=== PATIENT | male | born 1990 | race Caucasian/White ===

== ENCOUNTER 2018-09-17 07:47 | Emergency (ER) | payer SELFPAY ==
[2018-09-17] MEDS ORDERED: NA CHLORIDE 0.9% 1,000 ML ONE (08:57)
[2018-09-17 09:05] LABS: Absolute Lymphocytes (CBC) 1.9 K/uL (0.7-4.9); Basophils % 0.8 % (0-1.3); Eosinophils % 2.3 % (0-4.4); Hematocrit 44.4 % (39.6-49.0); Lymphocytes % 35.1 % (15.3-44.8); MPV 8.2 fL (7.6-11.3); Monocytes % 8.3 % (3.3-12.3); RBC Red Blood Cell Count 5.23 M/uL (4.33-5.43)
[2018-09-17 09:09] LABS: Magnesium 2.4 mg/dL (1.8-2.4); Potassium 4.2 mmol/L (3.5-5.1)
--- NOTE | 2018-09-17 09:28 | EDPHYS ---
Physician Documentation [facility] Name: Norman Linares Age: 28 yrs Sex: Male : 1990 Arrival Date: 09/17/2018 Time: 07:50 Bed 18 Private MD: None, None ED Physician Maco Chen HPI: 09/17 08:45 This 28 yrs old Male presents to ER via Ambulatory with complaints of jr8 Dizziness. 08:45 The patient presents with dizziness, lightheadedness. Onset: The symptoms/episode jr8 began/occurred acutely, this morning, today. Context: occurred at home, occurred while the patient was standing, walking, just prior to the episode the patient experienced no apparent symptoms. Modifying factors: The symptoms are alleviated by lying down, the symptoms are aggravated by standing up, changing position. Associated signs and symptoms: The patient has no apparent associated signs or symptoms. Severity of symptoms: At their worst the symptoms were mild in the emergency department the symptoms are unchanged. Patient's baseline: Neuro: alert and fully oriented, Motor: no deficits, Ambulation: walks without assistance, Speech: normal. The patient has not experienced similar symptoms in the past. The patient has not recently seen a physician. 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 Stated that this morning he felt lightheaded and dizzy. Denies any other symptoms . Historical: - Allergies: 07:50 No Known Allergies; aa5 - Home Meds: 07:50 None [Active]; aa5 - PMHx: 07:50 None; aa5 - PSHx: 07:50 None; aa5 - Immunization history:: Flu vaccine is not up to date. - Social history:: Smoking status: Patient/guardian denies using tobacco. - Ebola Screening: : No symptoms or risks identified at this time. ROS: 08:45 Constitutional: Negative for fever, chills, and weight loss. jr8 08:45 Cardiovascular: Negative for chest pain, palpitations, and edema, Respiratory: Negative for shortness of breath, cough, wheezing, and pleuritic chest pain. 08:45 Neuro: Positive for dizziness, Negative for altered mental status, gait disturbance, headache, hearing loss, loss of consciousness, numbness, seizure activity, speech changes, syncope, near syncope, tingling, tinnitus, tremor, visual changes, weakness. 08:45 All other systems are negative. Exam: 08:45 Eyes: Pupils equal round and reactive to light, extra-ocular motions intact. Lids and jr8 lashes normal. Conjunctiva and sclera are non-icteric and not injected. Cornea within normal limits. Periorbital areas with no swelling, redness, or edema. ENT: Nares patent. No nasal discharge, no septal abnormalities noted. Tympanic membranes are normal and external auditory canals are clear. Oropharynx with no redness, swelling, or masses, exudates, or evidence of obstruction, uvula midline. Mucous membranes moist. Neck: Trachea midline, no thyromegaly or masses palpated, and no cervical lymphadenopathy. Supple, full range of motion without nuchal rigidity, or vertebral point tenderness. No Meningismus. Cardiovascular: Regular rate and rhythm with a normal S1 and S2. No gallops, murmurs, or rubs. Normal PMI, no JVD. No pulse deficits. Respiratory: Lungs have equal breath sounds bilaterally, clear to auscultation and percussion. No rales, rhonchi or wheezes noted. No increased work of breathing, no retractions or nasal flaring. Abdomen/GI: Soft, non-tender, with normal bowel sounds. No distension or tympany. No guarding or rebound. No evidence of tenderness throughout. Back: No spinal tenderness. No costovertebral tenderness. Full range of motion. Skin: Warm, dry with normal turgor. Normal color with no rashes, no lesions, and no evidence of cellulitis. MS/ Extremity: Pulses equal, no cyanosis. Neurovascular intact. Full, normal range of motion. Neuro: Awake and alert, GCS 15, oriented to person, place, time, and situation. Cranial nerves II-XII grossly intact. Motor strength 5/5 in all extremities. Sensory grossly intact. Cerebellar exam normal. Normal gait. Vital Signs: 07:51 BP 148 / 84; Pulse 62; Resp 16 S; Temp 97.8(TE); Pulse Ox 99% on R/A; Weight 83.91 kg aa5 (R); Height 6 ft. 1 in. (185.42 cm) (R); Pain 0/10; 08:43 BP 129 / 72 Supine; Pulse 50; Resp 13; Pulse Ox 98% on R/A; mh5 08:45 BP 119 / 82 Sitting; Pulse 49; Resp 14; Pulse Ox 97% on R/A; mh5 08:47 BP 130 / 88 Standing; Pulse 55; Resp 13; Pulse Ox 98% on R/A; mh5 07:51 Body Mass Index 24.41 (83.91 kg, 185.42 cm) aa5 MDM: 08:29 Patient medically screened. [facility] 09:25 Data reviewed: vital signs, nurses notes, lab test result(s), EKG. Data interpreted: 8 Pulse oximetry: on room air is 98 %. Interpretation: normal. Counseling: I had a detailed discussion with the patient and/or guardian regarding: the historical points, exam findings, and any diagnostic results supporting the discharge/admit diagnosis, lab results, the need for outpatient follow up, a family practitioner, to return to the emergency department if symptoms worsen or persist or if there are any questions or concerns that arise at home. 09/17 08:36 Order name: Basic Metabolic Panel [facility] 09/17 08:36 Order name: CBC with Diff; Complete Time: 09:25 09/17 08:36 Order name: Magnesium; Complete Time: 09:25 09/17 08:36 Order name: CK; Complete Time: 09:25 09/17 08:37 Order name: Basic Metabolic Panel; Complete Time: 09:25 EDMS 09/17 09:17 Order name: Urine Dipstick--Ancillary (enter results); Complete Time: 09:30 em1 09/17 08:36 Order name: EKG; Complete Time: 08:37 09/17 08:36 Order name: Cardiac monitoring; Complete Time: 08:39 09/17 08:36 Order name: EKG - Nurse/Tech; Complete Time: 08:39 09/17 08:36 Order name: IV Saline Lock; Complete Time: 08:39 09/17 08:36 Order name: Labs collected and sent; Complete Time: 08:39 09/17 08:36 Order name: O2 Per Protocol; Complete Time: 08:39 09/17 08:36 Order name: O2 Sat Monitoring; Complete Time: 08:39 09/17 08:36 Order name: Orthostatics; Complete Time: 08:52 09/17 09:16 Order name: Urine Dipstick-Ancillary (obtain specimen); Complete Time: 09:16 aa5 Administered Medications: 08:53 Drug: NS 0.9% 1000 ml Route: IV; Rate: 1000 ml; Site: right forearm; aa5 10:00 Follow up: IV Status: Completed infusion ss Disposition: 09/18 09:41 Co-signature as Attending Physician, Maco Chen MD I agree with the assessment and wa plan of care. Disposition: 09/17/18 09:28 Discharged to Home. Impression: Dehydration, Dizziness. - Condition is Stable. - Discharge Instructions: Dehydration, Adult. - Medication Reconciliation Form, Thank You Letter, Antibiotic Education, Prescription Opioid Use form. - Follow up: Private Physician; When: 2 - 3 days; Reason: Recheck today's complaints, Continuance of care, Re-evaluation by your physician. - Problem is new. - Symptoms have improved. Signatures: Dispatcher [employer] EDNM Ninoska Hilliard RN RN aa5 Marie Francis RN RN Jameel Doyle PA PA jr8 Maco Chen MD MD il Corrections: (The following items were deleted from the chart) 09/17 10:39 09:28 09/17/2018 09:28 Discharged to Home. Impression: Dehydration; Dizziness. ss Condition is Stable. Forms are Medication Reconciliation Form, Thank You Letter, Antibiotic Education, Prescription Opioid Use. Follow up: Private Physician; When: 2 - 3 days; Reason: Recheck today's complaints, Continuance of care, Re-evaluation by your physician. Problem is new. Symptoms have improved. jr8
--- NOTE | 2018-09-17 09:28 | ER ---
Nurse's Notes [facility] Name: Norman Linares Age: 28 yrs Sex: Male : 1990 Arrival Date: 09/17/2018 Time: 07:50 Bed 18 Private MD: None, None Diagnosis: Dehydration;Dizziness Presentation: 09/17 07:50 Presenting complaint: Patient states: "I woke up feeling dizzy around 5:30am and I also aa5 feel shaky but it's only when I am standing up". Pt states "maybe I am dehydrated because I work outside but I do drink lots of water". Pt denies Nausea/vomiting, denies pain. 07:50 Transition of care: patient was not received from another setting of care. Onset of aa5 symptoms was September 17, 2018. Risk Assessment: Do you want to hurt yourself or someone else? Patient reports no desire to harm self or others. Initial Sepsis Screen: Does the patient meet any 2 criteria? No. Patient's initial sepsis screen is negative. Does the patient have a suspected source of infection? No. Patient's initial sepsis screen is negative. Care prior to arrival: None. 07:50 Acuity: WILMER 3 aa5 07:50 Method Of Arrival: Ambulatory aa5 Historical: - Allergies: 07:50 No Known Allergies; aa5 - Home Meds: 07:50 None [Active]; aa5 - PMHx: 07:50 None; aa5 - PSHx: 07:50 None; aa5 - Immunization history:: Flu vaccine is not up to date. - Social history:: Smoking status: Patient/guardian denies using tobacco. - Ebola Screening: : No symptoms or risks identified at this time. Screenin:02 Abuse screen: Denies threats or abuse. Nutritional screening: No deficits noted. aa5 Tuberculosis screening:. Fall Risk None identified. Assessment: 08:00 General: Appears uncomfortable, Behavior is calm, cooperative. Pain: Denies pain. aa5 Neuro: Level of Consciousness is awake, alert, obeys commands, Oriented to person, place, time, situation, Ware[employer] Distribution [employer] are equal bilaterally Moves all extremities. Speech is normal, Facial symmetry appears normal, Pupils are PERRLA, Reports dizziness. Cardiovascular: Heart tones S1 S2 present Rhythm is regular. Respiratory: Airway is patent Respiratory effort is even, unlabored, Respiratory pattern is regular, symmetrical. GI: Patient currently denies nausea, vomiting. : Reports dark colored urine Denies burning with urination, inability to void. EENT: No signs and/or symptoms were reported regarding the EENT system. Derm: Skin is pink, warm \\T\\ dry. Musculoskeletal: Range of motion: intact in all extremities. 08:53 Reassessment: Patient is alert, oriented x 3, equal unlabored respirations, skin aa5 warm/dry/pink. Patient denies pain at this time. Awaiting lab results, pt notified of wait time. Lights dimmed for comfort, pt currently resting with eyes closed .. 09:13 Reassessment: Patient is alert, oriented x 3, equal unlabored respirations, skin aa5 warm/dry/pink. Urine collected, urine is yellow and cloudy . Vital Signs: 07:51 BP 148 / 84; Pulse 62; Resp 16 S; Temp 97.8(TE); Pulse Ox 99% on R/A; Weight 83.91 kg aa5 (R); Height 6 ft. 1 in. (185.42 cm) (R); Pain 0/10; 08:43 BP 129 / 72 Supine; Pulse 50; Resp 13; Pulse Ox 98% on R/A; mh5 08:45 BP 119 / 82 Sitting; Pulse 49; Resp 14; Pulse Ox 97% on R/A; mh5 08:47 BP 130 / 88 Standing; Pulse 55; Resp 13; Pulse Ox 98% on R/A; mh5 07:51 Body Mass Index 24.41 (83.91 kg, 185.42 cm) [facility] ED Course: 07:50 Patient arrived in ED. mr 07:50 None, None is Private Physician. mr 07:50 Arm band placed on Patient placed in an exam room, on a stretcher. aa5 07:50 Patient has correct armband on for positive identification. Bed in low position. Call aa5 light in reach. Side rails up X2. 07:51 Jameel Doyle PA is PHCP. jr8 07:51 Maco Chen MD is Attending Physician. jr8 07:55 Ninoska Hilliard, RAMY is Primary Nurse. aa5 07:57 Triage completed. aa5 08:38 Initial lab(s) drawn, by me, sent to lab. Inserted saline lock: 20 gauge in right aa5 antecubital area, using aseptic technique. Blood collected. 08:51 color television console monitor on. Pulse ox on. NIBP on. mh5 08:56 EKG done, by library technician. reviewed by Jameel ZUÑIGA. 3 10:38 No provider procedures requiring assistance completed. IV discontinued, intact, ss bleeding controlled, No redness/swelling at site. Pressure dressing applied. Administered Medications: 08:53 Drug: NS 0.9% 1000 ml Route: IV; Rate: 1000 ml; Site: right forearm; aa5 10:00 Follow up: IV Status: Completed infusion Outcome: 09:28 Discharge ordered by . pepe 10:38 Discharged to home ambulatory. 10:38 Condition: good 10:38 Discharge instructions given to patient, Instructed on discharge instructions, follow up and referral plans. Demonstrated understanding of instructions, follow-up care. 10:39 Patient left the ED. Signatures: Suri Liriano BabakNinoska RN RN [facility] Marie Francis RN RN ss Roszak, Josh, PA PA [facility] Naomi Gonzalez [facility] Ijeoma Trivedi [facility]
[2018-09-17 09:29] LABS: Urine Blood NEGATIVE (NEG); Urine Glucose NEGATIVE (NEG); Urine Protein NEGATIVE (NEG)
--- NOTE | 2018-09-17 10:55 | EKG ---
Test Date: 2018-09-17 Test Time: 08:49:28 Repairing Calibrator: ARJUN MEASUREMENT RESULTS: Intervals: Rate: 47 NH: 132 QRSD: 96 QT: 426 QTc: 377 [place]: P: 43 NH: 132 QRS: 67 T: 57 INTERPRETIVE STATEMENTS: Marked sinus bradycardia with sinus arrhythmia Abnormal ECG No previous ECG available for comparison Electronically Signed On 09-17-18 10:54:28 CDT by Jerrod Quintero
== END 2018-09-17 10:39 | disposition home or self-care (01) ==
LOC: ER 07:47
DX: E86.0 Dehydration (principal)
CPT/HCPCS: 36415; 80048; 81003; 82550; 83735; 85025; 93005; 96360; 99284; J7030